=== PATIENT | female | born 1995 | race Caucasian/White ===

== ENCOUNTER 2017-12-10 18:39 | Emergency (ER) | payer SELFPAY ==
[2017-12-10] MEDS ORDERED: Cyclobenzaprine TAB* 10 MG PO ONE (21:46)
[2017-12-10 22:33] VITALS: BP 94/56
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
== END 2017-12-10 22:32 | disposition home or self-care (01) ==
LOC: ED 18:39
DX: S16.1XXA Strain of muscle, fascia and tendon at neck level, initial encounter (principal); R42 Dizziness and giddiness; V49.9XXA Car occupant (driver) (passenger) injured in unspecified traffic accident, initial encounter; Y92.9 Unspecified place or not applicable
CPT/HCPCS: 99282; A9270-GY